=== PATIENT | female | born 1975 | race Caucasian/White ===

== ENCOUNTER 2023-01-03 09:51 | Emergency (ER) | payer SELFPAY ==
--- NOTE | 2023-01-03 10:10 | EDPHYS ---
Physician Documentation [facility] Name: Yuridia Duncan Age: 47 yrs Sex: Female : 1975 Arrival Date: 01/03/2023 Time: 09:51 Bed 8 Private MD: ED Physician Chaka Salinas HPI: 01/03 10:06 This 47 yrs old Female presents to ER via Unassigned with complaints of Facial Swelling.kb 10:06 The patient presents with pain, redness, swelling. The problem is located in the upper kb left third molar (#16) and upper left second molar (#15) and upper left first molar (#14) and upper left second bicuspid (#13). Onset: The symptoms/episode began/occurred 3 day(s) ago. Duration: The symptoms are continuous. Modifying factors: The symptoms are alleviated by nothing, the symptoms are aggravated by nothing. Associated signs and symptoms: Pertinent positives: pain, redness in area, swelling. Severity of symptoms: At their worst the symptoms were moderate, in the emergency department the symptoms are unchanged. The patient has experienced similar episodes in the past. The patient has not recently seen a physician. Pt reports toothache started 3 days ago, started an unknown liquid antibiotic that was prescribed to daughter for an unknown illness some time ago. States she has also been using a prescribed mouthwash with no improvement. Woke up today with swelling to left cheek. . Historical: - Allergies: 10:15 Codeine; ph - Immunization history:: Adult Immunizations unknown. - Social history:: Smoking status: Patient/guardian denies using tobacco, unknown. ROS: 10:03 Constitutional: Negative for fever, chills, and weight loss. kb 10:03 ENT: Positive for dental pain, facial swelling. 10:03 All other systems are negative. Exam: 10:03 Constitutional: This is a well developed, well nourished patient who is awake, alert, kb and in no acute distress. Head/Face: Normocephalic, atraumatic. Cardiovascular: Regular rate and rhythm with a normal S1 and S2. No gallops, murmurs, or rubs. No pulse deficits. Respiratory: Respirations even and unlabored. No increased work of breathing. Talking in full sentences Skin: Warm, dry with normal turgor. Normal color. MS/ Extremity: Pulses equal, no cyanosis. Neurovascular intact. Full, normal range of motion. Neuro: Awake and alert, GCS 15, oriented to person, place, time, and situation. Moves all extremities. Normal gait. 10:03 ENT: Dental exam: cellulitis, dental caries, gum swelling, that is moderate, specifically in the upper left second bicuspid (#13), upper left first molar (#14), upper left second molar (#15) and upper left third molar (#16), pain. Vital Signs: 10:10 BP 153 / 105; Pulse 98; Resp 18; Temp 98.6; Pulse Ox 98% ; Pain 8/10; ph 10:10 Pain Scale: Adult ph MDM: 09:53 Patient medically screened. kb 10:03 Data reviewed: vital signs, nurses notes. kb 10:04 Differential diagnosis: dental caries, gingivitis, dental abscess. Test considered but kb Not performed: Labs: cbc, bmp considered but results would not change course of treatment. CT: CT considered, but results would not change course of treatment. Pt has no trismus, no resp distress, is nontoxic in appearance. EOM intact. . Counseling: I had a detailed discussion with the patient and/or guardian regarding: the historical points, exam findings, and any diagnostic results supporting the discharge/admit diagnosis, the need for outpatient follow up, a dentist, to return to the emergency department if symptoms worsen or persist or if there are any questions or concerns that arise at home. Administered Medications: 10:33 Drug: Ketorolac IM 30 mg Route: IM; Site: right deltoid; ph 11:00 Follow up: Response: No adverse reaction ph 10:34 Drug: Clindamycin PO 300 mg Route: PO; ph 11:00 Follow up: Response: No adverse reaction ph Disposition: 12:01 Co-signature as Attending Physician, Chaka Salinas MD I agree with the assessment and kdr plan of care. Disposition Summary: 01/03/23 10:09 Discharge Ordered Location: Home kb Condition: Stable kb Diagnosis - Other specified disorders of teeth and supporting structures kb - Cellulitis and abscess of mouth kb Followup: kb - With: Emergency Department - When: As needed - Reason: Worsening of condition Followup: kb - With: Private Physician - When: 2 - 3 days - Reason: Recheck today's complaints, Continuance of care, Re-evaluation by your physician Discharge Instructions: - Discharge Summary Sheet kb - Dental Pain, [id number] kb - Dental Abscess, [id number] kb Forms: - Medication Reconciliation Form kb - Thank You Letter kb - Antibiotic Education kb - Prescription Opioid Use kb - [email or web address] kb Prescriptions: - Clindamycin HCl 300 mg Oral Capsule - take 1 capsule by ORAL route every 6 hours for 10 days; 40 capsule; Refills: 0, kb Product Selection Permitted Signatures: Lacie Mazariegos, TALHA-C Chaka Foster MD MD kdr Hall, Patricia RN RN ph
[2023-01-03] MEDS ORDERED: KETOROLAC 30 MG/ML INJ ONE (10:31)
--- NOTE | 2023-01-03 11:02 | ER ---
Nurse's Notes [facility] Name: Yuridia Duncan Age: 47 yrs Sex: Female : 1975 Arrival Date: 01/03/2023 Time: 09:51 Bed 8 Private MD: Diagnosis: Other specified disorders of teeth and supporting structures;Cellulitis and abscess of mouth Presentation: 01/03 10:10 Chief complaint: Patient states: Pt states that she woke up this morning with left side ph facial swelling and pain. Pt states she is experiencing pain of 8 on a scale of 1-10. Denies any fever. Coronavirus screen: Vaccine status: Patient reports being unvaccinated. Client denies travel out of the [place] in the last 14 days. Ebola Screen: No symptoms or risks identified at this time. Initial Sepsis Screen: Does the patient meet any 2 criteria? No. Patient's initial sepsis screen is negative. Does the patient have a suspected source of infection? Yes: Other: Dental infection. Risk Assessment: Do you want to hurt yourself or someone else? Patient reports no desire to harm self or others. Onset of symptoms was January 03, 2023. 10:10 Method Of Arrival: Ambulatory ph 10:10 Acuity: BILL 4 ph Triage Assessment: 10:16 General: Appears in no apparent distress. uncomfortable, Behavior is calm, cooperative, ph appropriate for age, Denies fever. Pain: Complains of pain in left ear, left cheek and left jaw Pain currently is 8 out of 10 on a pain scale. EENT: Reports pain Pt reports pain in left side of face. swelling noted. Neuro: Level of Consciousness is awake, alert, obeys commands, Oriented to person, place, time, situation. Historical: - Allergies: 10:15 Codeine; ph - Immunization history:: Adult Immunizations unknown. - Social history:: Smoking status: Patient/guardian denies using tobacco, unknown. Screenin:20 [facility] ED Fall Risk Assessment (Adult) History of falling in the last 3 months, ph including since admission No falls in past 3 months (0 pts). Abuse screen: Denies threats or abuse. Denies injuries from another. Nutritional screening: No deficits noted. Tuberculosis screening: No symptoms or risk factors identified. Assessment: 10:20 General: See triage assessment . ph Vital Signs: 10:10 BP 153 / 105; Pulse 98; Resp 18; Temp 98.6; Pulse Ox 98% ; Pain 8/10; ph 10:10 Pain Scale: Adult ph ED Course: :53 Patient arrived in ED. mr 09:53 Lacie Mazariegos FNP-C is [facility]. kb 09:53 Chaka Salinas MD is Attending Physician. kb 10:03 Lor Mcarthur, RN is Primary Nurse. ph 10:15 Triage completed. ph 10:19 Arm band placed on right wrist. ph 10:35 Patient has correct armband on for positive identification. Bed in low position. Call ph light in reach. Side rails up X 1. Pulse ox on. NIBP on. 11:01 No provider procedures requiring assistance completed. Patient did not have IV access ph during this emergency room visit. Administered Medications: 10:33 Drug: Ketorolac IM 30 mg Route: IM; Site: right deltoid; ph 11:00 Follow up: Response: No adverse reaction ph 10:34 Drug: Clindamycin PO 300 mg Route: PO; ph 11:00 Follow up: Response: No adverse reaction ph Medication: 11:01 VIS not applicable for this client. ph Outcome: 10:09 Discharge ordered by . kb 11:01 Discharged to home ambulatory, with family. ph 11:01 Condition: good 11:01 Discharge instructions given to patient, Instructed on discharge instructions, follow up and referral plans. medication usage, Demonstrated understanding of instructions, follow-up care, medications, Prescriptions given X 1. 11:01 Patient left the ED. ph Signatures: Lacie Mazariegos FNP-C FNP-Augustin LantiguaaWhitney mr Lor Mcarthur, RN RN ph
[2023-01-03 11:06] VITALS: BP 153/105; TEMP 98.6; O2SAT 98
== END 2023-01-03 11:01 | disposition home or self-care (01) ==
LOC: ER 09:51
DX: K12.2 Cellulitis and abscess of mouth (principal)
CPT/HCPCS: 96372; 99284